=== PATIENT | female | born 1995 | race African-American/Black ===

== ENCOUNTER 2016-08-23 22:20 | Emergency (ER) | payer OTHER ==
[~2016-08-23] VITALS: Ht 152.4 cm; Wt 80.6 kg
[~2016-08-23 22:20] MED LIST: BENTYL10 MG PO
[2016-08-23 22:53] LABS: HEMATOCRIT 37.1 % (36.0-46.0); MCH 26.7 PG (29.0-34.0); MCHC 33.2 G/DL (30.0-36.0); MCV 80.5 FL (83-99); MEAN PLAT.VOLUME 9.4 uM^3 (9.5-12.4); PLATELET COUNT 372 K/uL (156-360); RBC DIS.WIDTH-CV 13.4 % (11.8-14.6); RBC DIS.WIDTH-SD 38.2 % (39-53); RED BLOOD COUNT 4.61 M/uL (3.80-5.20); WHITE BLOOD COUNT 7.9 K/uL (4.1-10.2)
[2016-08-23 23:06] LABS: CHLORIDE 103 mEq/L (99-109); POTASSIUM 4.1 mEq/L (3.7-5.4); SODIUM 137 mEq/L (136-147)
[2016-08-23 23:09] LABS: GLUCOSE 112 mg/dL (70-99)
[2016-08-23 23:10] LABS: ANION GAP 10 MEQ/L (2-14)
[2016-08-23 23:11] LABS: TOTAL BILIRUBIN 0.3 mg/dL (0.0-1.0)
[2016-08-23 23:12] LABS: ALKALINE PHOSPHATASE 77 IU/L (3-129); GFR ESTIMATE (CALCULATED) > 59 mL/min/
[2016-08-23 23:14] LABS: UREA NITROGEN (BUN) 9 mg/dL (9-23)
[2016-08-23 23:16] LABS: LIPASE 46 U/L (1.0-51.0)
[2016-08-23 23:24] LABS: QUANTITATIVE HCG < 4.0 MIU/ML
[2016-08-24 00:48] LABS: ADD MIUA? YES; BILIRUBIN NEGATIVE; BLOOD NEGATIVE; COLOR YELLOW ((YELLOW)); GLUCOSE (STRIP) NEGATIVE; KETONES NEGATIVE; LEUKOCYTES NEGATIVE; NITRITE NEGATIVE; PROTEIN (STRIP) NEGATIVE; UROBILINOGEN 0.2 MG/DL (0.2-1.0)
[2016-08-24 01:18] LABS: BACTERIA 1+; CASTS NONE SEEN /LPF; CRYSTALS PRESENT; EPITHELIAL CELLS 2+; MUCUS NONE SEEN; RED BLOOD CELLS NONE SEEN /HPF (0-5); UCUL ADDED? NO; WHITE BLOOD CELLS NONE SEEN /HPF (0-5)
[2016-08-24 01:19] LABS: AMORPHOUS PHOSPHATE CRYSTALS 4+
[2016-08-24] MEDS ORDERED: NORCO 5/3251 TABLET PO (01:41)
[2016-08-24] MEDS ORDERED: BENTYL10 MG PO (01:41)
[2016-08-24 01:52] VITALS: BP 114/82
== END 2016-08-24 01:53 | disposition home or self-care (01) ==
LOC: EME 22:20 → RME 22:20
DX: R10.30 Lower abdominal pain, unspecified (principal); R10.2 Pelvic and perineal pain; R11.0 Nausea
CPT/HCPCS: 74176; 80053; 81003; 83690; 84702; 85027; 99281; 99284

== ENCOUNTER 2016-12-17 01:24 | Emergency (ER) | payer OTHER ==
[~2016-12-17] VITALS: Ht 162.6 cm; Wt 85.1 kg
[~2016-12-17 01:24] MED LIST changes: +NORCO 5/3251 TABLET PO
[2016-12-17 02:57] LABS: EOSINOPHIL (%) 1.8 % (0-5); EOSINOPHIL COUNT 0.1 K/uL (0-0.3); HEMATOCRIT 38.8 % (36.0-46.0); IMMATURE GRANULOCYTE (%) 0.1 % (0.0-0.7); INSTRUMENT ABS NEUTROPHIL CT 3.6 K/uL; LYMPHOCYTE COUNT 3.4 K/uL (1.0-2.8); MCH 26.2 PG (29.0-34.0); MCHC 31.7 G/DL (30.0-36.0); MCV 82.7 FL (83-99); MEAN PLAT.VOLUME 9.5 uM^3 (9.5-12.4); MONOCYTE COUNT 0.5 K/uL (0-0.8); NEUTROPHIL (%) 46.7 % (45-76); NEUTROPHIL COUNT 3.6 K/uL (1.8-6.4); PLATELET COUNT 376 K/uL (156-360); RBC DIS.WIDTH-CV 13.2 % (11.8-14.6); RBC DIS.WIDTH-SD 39.9 % (39-53); RED BLOOD COUNT 4.69 M/uL (3.80-5.20); WHITE BLOOD COUNT 7.7 K/uL (4.1-10.2)
[2016-12-17 03:44] LABS: CHLORIDE 103 mEq/L (99-109); POTASSIUM 3.9 mEq/L (3.7-5.4); SODIUM 139 mEq/L (136-147)
[2016-12-17 03:46] LABS: GLUCOSE 89 mg/dL (70-99)
[2016-12-17 03:48] LABS: ANION GAP 12 MEQ/L (2-14)
[2016-12-17 03:50] LABS: GFR ESTIMATE (CALCULATED) > 59 mL/min/
[2016-12-17 03:51] LABS: UREA NITROGEN (BUN) 10 mg/dL (9-23)
[2016-12-17 04:32] LABS: QUANTITATIVE HCG < 4.0 MIU/ML
[2016-12-17] MEDS ORDERED: PREDNISONE20 MG PO (04:38)
[2016-12-17] MEDS ORDERED: KEFLEX500 MG PO (04:38)
[2016-12-17 04:55] VITALS: BP 118/75
== END 2016-12-17 04:56 | disposition home or self-care (01) ==
LOC: EME 01:24
PROVIDERS: Emergency Medicine
DX: L03.114 Cellulitis of left upper limb (principal); T78.40XA Allergy, unspecified, initial encounter; X58.XXXA Exposure to other specified factors, initial encounter
CPT/HCPCS: 80048; 83605; 84702; 85025; 87040; 99281; 99284; J1200; J2930; S0028

== ENCOUNTER 2016-12-21 20:11 | Emergency (ER) | payer OTHER ==
[~2016-12-21] VITALS: Ht 152.4 cm; Wt 85.1 kg
[~2016-12-21 20:11] MED LIST changes: +KEFLEX500 MG PO; +PREDNISONE20 MG PO
[2016-12-21 22:04] LABS: EOSINOPHIL (%) 0 % (0-5); HEMATOCRIT 39.5 % (36.0-46.0); IMMATURE GRANULOCYTE (%) 1.3 % (0.0-0.7); IMMATURE GRANULOCYTE COUNT 0.2 K/uL; INSTRUMENT ABS NEUTROPHIL CT 16.1 K/uL; LYMPHOCYTE COUNT 1.2 K/uL (1.0-2.8); MCH 26.5 PG (29.0-34.0); MCHC 32.2 G/DL (30.0-36.0); MCV 82.5 FL (83-99); MEAN PLAT.VOLUME 9.4 uM^3 (9.5-12.4); MONOCYTE (%) 1.7 % (3-12); MONOCYTE COUNT 0.3 K/uL (0-0.8); NEUTROPHIL (%) 90.3 % (45-76); NEUTROPHIL COUNT 16.1 K/uL (1.8-6.4); PLATELET COUNT 378 K/uL (156-360); RBC DIS.WIDTH-CV 13.3 % (11.8-14.6); RBC DIS.WIDTH-SD 40.1 % (39-53); RED BLOOD COUNT 4.79 M/uL (3.80-5.20); WHITE BLOOD COUNT 17.8 K/uL (4.1-10.2)
[2016-12-21 22:07] LABS: D-DIMER ELISA 0.53 mg/L FEU (< 0.57)
[2016-12-21 22:13] LABS: CHLORIDE 103 mEq/L (99-109); POTASSIUM 4.2 mEq/L (3.7-5.4); SODIUM 135 mEq/L (136-147)
[2016-12-21 22:15] LABS: GLUCOSE 134 mg/dL (70-99)
[2016-12-21 22:18] LABS: GFR ESTIMATE (CALCULATED) > 59 mL/min/
[2016-12-21 22:19] LABS: UREA NITROGEN (BUN) 12 mg/dL (9-23)
[2016-12-21 22:27] LABS: QUANTITATIVE HCG < 4.0 MIU/ML
[2016-12-21 22:46] LABS: ANION GAP 10 MEQ/L (2-14)
[2016-12-22 00:47] LABS: ADD MIUA? YES; BILIRUBIN NEGATIVE; BLOOD NEGATIVE; COLOR YELLOW ((YELLOW)); GLUCOSE (STRIP) NEGATIVE; KETONES NEGATIVE; LEUKOCYTES NEGATIVE; NITRITE NEGATIVE; PROTEIN (STRIP) NEGATIVE; SPECIFIC GRAVITY 1.017 (1.000-1.030); UROBILINOGEN 0.2 MG/DL (0.2-1.0)
[2016-12-22 01:07] LABS: BACTERIA RARE /HPF; EPITHELIAL CELLS 1+ /HPF; MUCUS TRACE /LPF; RED BLOOD CELLS 0-5 /HPF (0-5); WHITE BLOOD CELLS 0-5 /HPF (0-5)
[2016-12-22] MEDS ORDERED: MOTRIN800 MG PO (02:07)
[2016-12-22 02:18] VITALS: BP 112/77
[2016-12-22 10:21] LABS: LYME DISEASE SEROLOGY SCREEN NEGATIVE (NEGATIVE)
== END 2016-12-22 02:18 | disposition home or self-care (01) ==
LOC: EME 20:11
PROVIDERS: Emergency Medicine; Physician Assistant
DX: R07.89 Other chest pain (principal); I44.0 Atrioventricular block, first degree; M79.1 Myalgia; D72.829 Elevated white blood cell count, unspecified
CPT/HCPCS: 71020; 80048; 81003; 83605; 83880; 84702; 85025; 85379; 85651; 86140; 86618; 87040; 93005; 99281; 99285; J1885; J7030

== ENCOUNTER 2016-12-27 21:07 | Emergency (ER) | payer OTHER ==
[~2016-12-27] VITALS: Ht 152.4 cm; Wt 85.5 kg
[~2016-12-27 21:07] MED LIST changes: +MOTRIN800 MG PO
[2016-12-27 21:18] VITALS: BP 109/78
== END 2016-12-27 23:50 | disposition left against medical advice (07) ==
LOC: EME 21:07 → EXP 21:07
DX: R21 Rash and other nonspecific skin eruption (principal); Z53.21 Procedure and treatment not carried out due to patient leaving prior to being seen by health care provider

== ENCOUNTER 2017-04-22 14:43 | Emergency (ER) | payer OTHER ==
[~2017-04-22] VITALS: Ht 152.4 cm; Wt 85.8 kg
[2017-04-22] MEDS ORDERED: TRI-LINYAH1 EACH PO (15:23)
[2017-04-22 16:04] LABS: HEMATOCRIT 36.4 % (36.0-46.0); MCH 26.5 PG (29.0-34.0); MCHC 32.1 G/DL (30.0-36.0); MCV 82.4 FL (83-99); MEAN PLAT.VOLUME 9.2 uM^3 (9.5-12.4); PLATELET COUNT 353 K/uL (156-360); RBC DIS.WIDTH-CV 13.2 % (11.8-14.6); RBC DIS.WIDTH-SD 39.8 % (39-53); RED BLOOD COUNT 4.42 M/uL (3.80-5.20); WHITE BLOOD COUNT 7.1 K/uL (4.1-10.2)
[2017-04-22 16:11] LABS: CHLORIDE 104 mEq/L (99-109); SODIUM 137 mEq/L (136-147)
[2017-04-22 16:14] LABS: GLUCOSE 78 mg/dL (70-99)
[2017-04-22 16:15] LABS: ANION GAP 8 MEQ/L (2-14)
[2017-04-22 16:16] LABS: TOTAL BILIRUBIN 0.4 mg/dL (0.0-1.0)
[2017-04-22 16:17] LABS: ALKALINE PHOSPHATASE 73 IU/L (3-129); GFR ESTIMATE (CALCULATED) > 59 mL/min/
[2017-04-22 16:19] LABS: UREA NITROGEN (BUN) 9 mg/dL (9-23)
[2017-04-22] MEDS ORDERED: PERCOCET 5/31 TABLET PO (16:59)
[2017-04-22] MEDS ORDERED: FLEXERIL10 MG PO (16:59)
[2017-04-22] MEDS ORDERED: MOTRIN600 MG PO (16:59)
[2017-04-22 17:26] VITALS: BP 121/62
== END 2017-04-22 17:26 | disposition home or self-care (01) ==
LOC: EME 14:43
PROVIDERS: Nurse Practitioner Family
DX: M79.602 Pain in left arm (principal); R52 Pain, unspecified
CPT/HCPCS: 80053; 85027; 99281; 99283

== ENCOUNTER 2017-07-30 00:11 | Emergency (ER) | payer OTHER ==
[~2017-07-30] VITALS: Ht 152.4 cm; Wt 88.3 kg
[~2017-07-30 00:11] MED LIST changes: +FLEXERIL10 MG PO; +MOTRIN600 MG PO; +PERCOCET 5/31 TABLET PO; +TRI-LINYAH1 EACH PO
[2017-07-30] MEDS ORDERED: NEOMYCIN-POLYMY10 M1 BOTH EARS (00:42)
[2017-07-30 01:07] VITALS: BP 123/74
== END 2017-07-30 01:24 | disposition home or self-care (01) ==
LOC: EME 00:11
DX: H60.93 Unspecified otitis externa, bilateral (principal)
CPT/HCPCS: 99281; 99283

== ENCOUNTER 2017-11-07 15:28 | Emergency (ER) | payer OTHER ==
[~2017-11-07] VITALS: Ht 152.4 cm; Wt 86.6 kg
[~2017-11-07 15:28] MED LIST changes: +NEOMYCIN-POLYMY10 M1 BOTH EARS
[2017-11-07 15:51] VITALS: BP 117/73
[2017-11-07 16:18] LABS: HEMATOCRIT 36.2 % (36.0-46.0); HEMOGLOBIN 11.7 G/DL (11.9-15.5); MCH 26.5 PG (29.0-34.0); MCHC 32.3 G/DL (30.0-36.0); MCV 81.9 FL (83-99); PLATELET COUNT 392 K/uL (156-360); RBC DIS.WIDTH-CV 13.2 % (11.8-14.6); RBC DIS.WIDTH-SD 39.7 % (39-53); RED BLOOD COUNT 4.42 M/uL (3.80-5.20)
[2017-11-07 16:30] LABS: CHLORIDE 105 mEq/L (99-109); SODIUM 136 mEq/L (136-147)
[2017-11-07 16:31] LABS: GLUCOSE 100 mg/dL (70-99)
[2017-11-07 16:35] LABS: CREATININE 0.9 mg/dL (0.6-1.3); GFR ESTIMATE (CALCULATED) > 59 mL/min/
[2017-11-07 16:36] LABS: UREA NITROGEN (BUN) 8 mg/dL (9-23)
== END 2017-11-07 18:47 | disposition home or self-care (01) ==
LOC: EME 15:28
DX: J06.9 Acute upper respiratory infection, unspecified (principal); M34.9 Systemic sclerosis, unspecified; M32.9 Systemic lupus erythematosus, unspecified
CPT/HCPCS: 71046; 80048; 85027; 93005; 99281; 99283